=== PATIENT | male | born 1985 | race Caucasian/White ===

== ENCOUNTER 2022-02-28 10:47 | Emergency (ER) | payer OTHER, SELFPAY ==
[2022-02-28] VITALS (7 sets, daily range): BP systolic 141–172; BP diastolic 83–107; PULSE 52–74; RESP 18–20; TEMP 36.5–36.9; O2SAT 99–100; BMI 42.3
--- NOTE | 2022-02-28 11:06 | CT_ITS ---
FINAL REPORT CLINICAL HISTORY: left flank pain FINDINGS: Axial CT images of the abdomen and pelvis were obtained without intravenous contrast. Coronal reformatted images were also obtained.This study was performed with techniques to keep radiation doses as low as reasonably achievable (ALARA). Individualized dose reduction techniques using automated exposure control or adjustment of mA and/or kV according to the patient's size were employed. Abdomen: There is a partially imaged nodule at the left major fissure measuring 14 mm. There is a less than 3 mm nonobstructing stone in the left kidney. There is mild left hydronephrosis and hydroureter secondary to a 2 mm stone in the distal left ureter just proximal to the UVJ. The gallbladder is not seen consistent with prior cholecystectomy. The liver, spleen and pancreas have an unremarkable, unenhanced appearance. No mass or adenopathy is seen. No inflammatory process is identified. Pelvis: Images of the pelvis reveal no evidence of ureteral dilation or ureteral stone. The appendix is normal. There are small inguinal hernias containing fat. IMPRESSION: Mild left hydronephrosis and hydroureter secondary to a 2 mm stone in the distal left ureter just proximal to the UVJ. Less than 3 mm nonobstructing left renal stone. Partially imaged 14 mm pulmonary nodule at the left major fissure. Recommend chest CT for further evaluation. Reviewed, Interpreted and Dictated by Nick Chang III, MD Transcribed by Dulce Maria Herring Authenticated and [facility]
--- NOTE | 2022-02-28 11:07 | PC.NURSE ---
1104 ED MD AT BEDSIDE TO EVALUATE PT
[2022-02-28 11:08] LABS: Basophils # 0.1 K/mm3 (0-0.2); Basophils % 0.7 % (0.1-2.0); Eosinophils # 0.2 K/mm3 (0.0-0.4); Eosinophils % 1.3 % (0.1-12.0); Hematocrit 48.7 % (42.0-52.0); Hemoglobin 15.4 g/dL (14.1-18.0); Lymphocytes % 7.8 % (10-50); Mean Corpuscular HGB Conc 31.6 g/dL (31.8-35.4); Mean Corpuscular Hemoglobin 28.7 pg (27.0-31.2); Mean Corpuscular Volume 90.7 fl (80-94); Mean Platelet Volume 7.5 fl (7.4-10.4); Monocytes # 0.4 K/mm3 (0.1-1.0); Monocytes % 2.9 % (1.7-9.3); Neutrophils # 11.5 K/mm3 (1.8-7.8); Neutrophils % 87.3 % (37.0-80.0); Platelet Count 281 K/mm3 (142-424); Red Blood Count 5.37 M/mm3 (4.60-6.20); Red Cell Distribution Width 13.1 % (11.5-17.5); White Blood Count 13.2 K/mm3 (4.8-10.8)
[2022-02-28 11:09] LABS: MANUAL DIFFERENTIAL MANUAL DIFFERENTIAL (MANUAL DIFF)
[2022-02-28 11:12] LABS: Chloride 100 mmol/L (98-107); Sodium 132 mmol/L (136-145)
[2022-02-28 11:13] LABS: Potassium 4.3 mmoL/L (3.5-5.1)
--- NOTE | 2022-02-28 11:13 | PC.NURSE ---
PT TO CT AT THIS TIME
[2022-02-28 11:15] LABS: Alanine Aminotransferase 42 U/L (12-78); Alkaline Phosphatase 75 U/L (38-126); Anion Gap 13.3 mEq/L (5-15); Aspartate Amino Transferase 36 U/L (17-59); Bilirubin,Total 0.7 mg/dl (0.2-1.3); Blood Urea Nitrogen 14 mg/dl (9-20); Carbon Dioxide 23 mmol/L (22.0-30.0); Creatinine Clearance Estimated 121 mL/min (50-200); Estimated Glomerular Filt Rate 86 ml/min (>60); GFR (African American) 103 ML/MIN (>60)
[2022-02-28 11:16] LABS: Albumin Level 4.5 g/dl (3.5-5.0); Albumin/Globulin Ratio 1.3 (1.1-1.8); Calcium 9.3 mg/dl (8.4-10.2); Globulin 3.5 g/dL (1.3-3.2); Glucose 222 mg/dl (74-100)
--- NOTE | 2022-02-28 11:19 | PC.NURSE ---
Back from CT
--- NOTE | 2022-02-28 11:20 | PC.NURSE ---
[address]
[2022-02-28 11:29] LABS: Lipase 43 U/L (23-300)
--- NOTE | 2022-02-28 11:47 | [facility].EDGENADL ---
ED Disposition Clinical Impression: Kidney stone on left side Disposition: Home, Self-Care Condition on Discharge: Good Instructions: DI for Kidney Stones Prescriptions: Hydrocod/Acet 5/325 mg [Be[place]umont 5/325mg tablet] 1 tab PO Q6HP PRN #10 tab PRN Reason: Moderate To Severe Pain Transmission Status: Received by [id number] Tamsulosin HCl [Flomax 0.4mg capsule] 0.4 mg PO DAILY #7 cap Transmission Status: Pending to [id number] Ondansetron [Zofran 4mg ODT] 4 mg PO BIDP PRN #10 tab PRN Reason: Nausea Transmission Status: Pending to [id number] Referrals: Provider,MD Brayan [Primary Care Provider] - Zack Bear MD [Staff Physician] - - Critical Care Critical Care Time: No Attestation: On , the high probability of a clinically significant, sudden or life threatening deterioration of the following system(s) required my full and direct attention, intervention and personal management. The time I documented below is in addition to time spent performing reported procedures but includes the following listed in this critical care notation. Medical Decision Making - Medical Records Medical records reviewed: Yes: I reviewed the patient's medical records. - Francisco Inquiry Pt receiving controlled substance: Yes Francisco was queried for this patient: No Reason not queried -: Francisco login issues Risks and benefits of using a controlled substance: were discussed with pt by me Vital Signs: 02/28/22 10:48 02/28/22 11:28 02/28/22 11:31 Temperature 97.7 F Temperature Source Oral Pulse Rate 52 L 60 Pulse Rate [Left] 74 Respiratory Rate 20 Blood Pressure 141/83 H 144/83 H Blood Pressure [Right Arm] 172/95 H Blood Pressure Mean 106 100 Blood Pressure Mean [Right Arm] 120 Blood Pressure Source [Right Arm] Automatic Cuff Blood Pressure Position [Right Arm] Sitting 02 Sat by Pulse Oximetry 100 99 99 Oxygen Delivery Method Room Air 02/28/22 12:01 02/28/22 12:31 02/28/22 13:07 Temperature Temperature Source Pulse Rate 66 65 65 Pulse Rate [Left] Respiratory Rate Blood Pressure 148/88 H 164/88 H 164/89 H Blood Pressure [Right Arm] Blood Pressure Mean 102 114 Blood Pressure Mean [Right Arm] Blood Pressure Source [Right Arm] Blood Pressure Position [Right Arm] 02 Sat by Pulse Oximetry 100 99 99 Oxygen Delivery Method Room Air - Lab Data Lab Results 02/28/22 10:55: WBC 13.2 H, RBC 5.37, Hgb 15.4, Hct 48.7, MCV 90.7, MCH 28.7, MCHC 31.6 L, RDW 13.1, Plt Count 281, MPV 7.5, Neut % (Auto) 87.3 H, Lymph % (Auto) 7.8 L, Rice % (Auto) 2.9, Eos % (Auto) 1.3, Baso % (Auto) 0.7, Neut # (Auto) 11.5 H, Lymph # (Auto) 1.0, Rice # (Auto) 0.4, Eos # (Auto) 0.2, Baso # (Auto) 0.1, Total Counted 100, Neutrophils % (Manual) 86 H, Lymphocytes % (Manual) 10, Monocytes % (Manual) 2, Eosinophils % (Manual) 2, Platelet Estimate Normal, RBC Morphology Normal 02/28/22 10:55: Sodium 132 L, Potassium 4.3, Chloride 100, Carbon Dioxide 23, Anion Gap 13.3, BUN 14, Creatinine 1.00, Estimated Creat Clear 121, Estimated GFR 86, Est GFR ( Amer) 103, Glucose 222 H, Calcium 9.3, Total Bilirubin 0.7, AST 36, ALT 42, Alkaline Phosphatase 75, Total Protein 8.0, Albumin 4.5, Globulin 3.5 H, Albumin/Globulin Ratio 1.3 02/28/22 10:55: Lipase 43 02/28/22 13:04: Urine Color Yellow, Urine Appearance Clear, Urine pH 5.5, Ur Specific Cantril 1.020, Urine Protein Negative, Urine Glucose (UA) Trace, Urine Ketones 1+, Urine Blood Negative, Urine Nitrate Negative, Urine Bilirubin Negative, Urine Urobilinogen 0.2, Ur Leukocyte Esterase Negative, Urine RBC None, Urine WBC None, Ur Squamous Epith Cells Occasional, Urine Bacteria Trace Result diagrams: 02/28/22 10:55 02/28/22 10:55 Orders (Tests/Meds): ED MEDICATIONS Generic Name Dose Route Start Last Admin Trade Name Freq PRN Reason Stop Dose Admin Sodium Chloride 10 ml 02/28/22 11:01 Sodium Chloride 0.9% 10ml Flush
[2022-02-28 12:07] LABS: Eosinophils % 2 % (0-3); Lymphocytes % 10 % (10-50); Monocytes % 2 % (2-9); Neutrophils % 86 % (42-76); Platelet Estimate Normal; RBC Morphology Normal; Total Cells Counted 100
--- NOTE | 2022-02-28 13:00 | PC.NURSE ---
pt ambulatory to restroom without complication. he is aware to get a urine sample.
--- NOTE | 2022-02-28 13:05 | PC.NURSE ---
UA sent to lab; pt ambulatory back to ED room from restroom without complications. He is complaining of back pain again and is having a hard time getting comfortable on the stretcher. IV fluids are complete and patient given a warm blanket. Anni Rodríguez, RN aware of patients pain coming back. Call light within reach.
[2022-02-28 13:07] LABS: Microscopic, Urine URINE MICROSCOPIC (MICROSCOPIC)
[2022-02-28 13:12] LABS: Appearance,Urine CLEAR (Clear); Bilirubin,Urine Negative (Negative); Blood, Urine Negative (Negative); Color,Urine YELLOW (Yellow); Glucose,Urine (UA) TRACE (Negative); Ketones,Urine 1+ (Negative); Leukocyte Esterase,Urine Negative (Negative); Nitrate,Urine Negative (Negative); PH,Urine 5.5 (5.0-8.5); Protein,Urine Negative (Negative); Urobilinogen,Urine 0.2 EU/dl (0.2)
[2022-02-28 13:23] LABS: Bacteria,Urine Trace /lpf; Squamous Epithelial Cell,Urine Occasional #/hpf (0-5)
--- NOTE | 2022-02-28 13:27 | PC.NURSE ---
Dr. Barraza made aware of patients pain not improving.
--- NOTE | 2022-02-28 13:41 | PC.NURSE ---
PT MEDICATED AT THIS TIME PER EMAR. NO FURTHER NEEDS AT THIS TIME
--- NOTE | 2022-02-28 13:54 | PC.NURSE ---
1354 ED MD AT BEDSIDE TO REEVALUATE PT
--- NOTE | 2022-02-28 14:09 | PC.NURSE ---
PT TO BR AT THIS TIME
== END 2022-02-28 14:10 | disposition home or self-care (01) ==
PROVIDERS: Emergency Provider Emergency Medicine
DX: N20.0 Calculus of kidney (principal)
CPT/HCPCS: 74176; 80053; 81001; 83690; 85007; 85025; 96365; 96375; 96376; 99284; J2405